=== PATIENT | male | born 1955 | race African-American/Black ===

== ENCOUNTER 2023-02-28 12:45 | Outpatient (CLI) | payer OTHER, MEDICAID ==
[2023-02-28 16:25] LABS: Bilirubin Neg (Negative); Blood, Urine Negative (Negative); Clarity Clear (Clear); Glucose, Urine (Dipstick) Normal (Negative); Ketone, Urine Negative (Negative); Leukocyte Negative (Negative); Nitrite Negative (Negative); Protein, Urine (Dipstick) 15 mg/dl (Neg-Trace); Urobilinogen Normal mg/dL (Less than 2)
[2023-02-28 16:49] LABS: Anion Gap 13 mmol/L (10-20); BUN (Urea Nitrogen) 13 mg/dL (8.4-25.7); Calc. Creatinine Clearance 0 mL/min (70-130); Calcium 9.2 mg/dL (7.8-10.44); Carbon Dioxide 25 mmol/L (23-31); Chloride 106 mmol/L (98-107); Estimated GFR 78; Glucose 84 mg/dL (80-115); Potassium 3.8 mmol/L (3.5-5.1); Sodium 140 mmol/L (136-145)
[2023-02-28 17:09] LABS: PTT 28.1 sec (22.0-33.0); Prothrombin Time 10.9 sec (9.5-12.1)
[2023-02-28 17:29] LABS: Hematocrit 38.6 % (38.8-50.0); Hemoglobin 12.5 g/dL (13.5-17.5); Mean Corpuscular HGB CONC 32.4 g/dL (32.0-36.0); Mean Corpuscular Hemoglobin 28.3 pg (27.0-33.0); Mean Corpuscular Volume 87.5 fl (81.2-95.1); Mean Platelet Volume 9.5 fl (7.4-10.4); Platelet Count 173 10x3/uL (150-450); RBC Distribution Width 13.9 % (11.5-14.5); Red Blood Cell (RBC) Count 4.41 10x6/uL (4.32-5.72); White Blood Cell (WBC) Count 4.8 10x3/uL (3.5-10.5)
[2023-02-28 17:33] LABS: Bacteria/HPF Rare-Few HPF (None Seen); RBC/HPF None Seen HPF (0-3); Squamous Epithelial 0-3 HPF (0-3); WBC/HPF None Seen HPF (0-3)
[2023-02-28 18:19] LABS: ALT (SGPT) 10 U/L (8-55); AST (SGOT) 21 U/L (5-34); Albumin 4.3 g/dL (3.4-4.8); Alkaline Phosphatase 68 U/L (40-110); Bilirubin, Direct 0.3 mg/dL (0.1-0.3); Bilirubin, Total 0.6 mg/dL (0.2-1.2); Protein, Total 7.5 g/dL (5.8-8.1)
== END 2023-02-28 12:46 | disposition home or self-care (01) ==
LOC: LABBT 12:45
PROVIDERS: ATTEND Urology
DX: Z01.818 Encounter for other preprocedural examination (principal)
CPT/HCPCS: 71046; 80048; 80076; 81001; 85027; 85610; 85730; 87086; 93005; 93010